=== PATIENT | male | born 1985 | race Two or more races ===

== ENCOUNTER → 2017-09-23 | Emergency (ER) | payer OTHER ==
[~2017-09-23] VITALS: Ht 170.2 cm; Wt 70.3 kg
[~2017-09-23] MED LIST: IBUPROFEN600 MG ORAL; NKM
[2017-09-23 05:56] VITALS: BP 127/82
[2017-09-23 07:19] VITALS: BP 109/82
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
== END | disposition home or self-care (01) ==
LOC: EMR 06:36
DX: S10.93XA Contusion of unspecified part of neck, initial encounter (principal); S80.11XA Contusion of right lower leg, initial encounter; Y04.2XXA Assault by strike against or bumped into by another person, initial encounter; Y92.9 Unspecified place or not applicable
CPT/HCPCS: 99283

== ENCOUNTER 2017-12-15 10:13 | Emergency (ER) | payer OTHER ==
[~2017-12-15] VITALS: Ht 167.6 cm; Wt 77.1 kg
[2017-12-15 10:43] VITALS: BP 117/76
[2017-12-15] MEDS ORDERED: Bacitracin Oint UD TOPIC ONE (11:15)
[2017-12-15] MEDS ORDERED: Tetanus/Diptheria/Pertussis Vaccine 0.5ml Syr IM ONE (11:15)
--- NOTE | 2017-12-15 11:24 | Emergency Room Report ---
History of Present Illness General Chief Complaint: Skin Rash/Abscess Source: Patient Present Illness HPI Patient presents with several rashes. He has a cat that is loosing its hair. He has several lesions which are itching on his skin. No fevers or pain. Also has some possible bug bites. His Mom is a doctor who recommended antihistamines. > 10 years for last tetanus. No fevers, URI, dyspnea, chest pain, NVD, dysuria, joint pain. Allergies: Coded Allergies: No Known Allergies (Unverified , 09/23/17) Patient History Past Medical History: see triage record Social History: Reports: smoking; Denies: alcohol use, drug use Social History Narrative with cat Reviewed Nursing Documentation: PMH: Agreed; PSxH: Agreed Nursing Documentation-PMH Past Medical History: No Stated History Review of Systems All Other Systems: negative except mentioned in HPI Physical Exam Vital Signs Date Time Temp Pulse Resp B/P (MAP) Pulse Ox O2 Delivery O2 Flow Rate FiO2 12/15/17 10:18 98.8 86 18 117/76 97 Room Air 98.8 Sp02 EP Interpretation: reviewed, normal General Appearance: well appearing, no apparent distress Head: normocephalic, atraumatic Eyes: bilateral eye normal inspection, bilateral eye PERRL ENT: hearing grossly normal, normal voice, moist mucus membranes Neck: full range of motion, supple Respiratory: lungs clear, no respiratory distress, speaking full sentences Cardiovascular #1: regular rate, rhythm Cardiovascular #2: 2+ radial (L) Gastrointestinal: normal bowel sounds, non tender Musculoskeletal: digits/nails normal, gait/station normal, normal range of motion, no calf tenderness Neurologic: alert, oriented x3, normal gait, grossly normal Psychiatric: mood/affect normal Skin: warm/dry, rash - erythema and slightly annular in several areas, R hand, ankle, other - bug bite R upper inner arm Medical Decision Making Diagnostic Impression: Primary Impression: Bug bites Qualified Codes: W57.XXXA - Bitten or stung by nonvenomous insect and other nonvenomous arthropods, initial encounter Additional Impression: Tinea corporis ER Course Patient presents with several rashes. Exam c/w tinea corporis and bug bites. No evidence of abscess or cellulitis. Needs tetanus and bacitracin with benadryl. Also will need antifungal. Improved with treatment. Told to get treatment for his cat. Patient stable for outpatient observation and treatment. Last Vital Signs Date Time Temp Pulse Resp B/P (MAP) Pulse Ox O2 Delivery O2 Flow Rate FiO2 12/15/17 11:39 98.7 75 18 112/81 99 Room Air 98.8 Status: improved Disposition: HOME, SELF-CARE Condition: Improved Scripts Bacitracin (Bacitracin) 28.4 Gm Oint...g. 1 APPLIC TOPIC BIDAC, #10 GM Prov: Jax Flores M.D. 12/15/17 Hydrocortisone/Aloe Vera 1%* (HYDROCORTISONE-ALOE 1% CREAM*) Y Cr 1 APPLIC TOPIC BID PRN for Itching, #10 GM Prov: Jax Flores M.D. 12/15/17 Tolnaftate* (AF*) 130 Gm Aero.powd 1 APPLIC TOPIC TWICE A DAY, #30 GM Prov: Jax Flores M.D. 12/15/17 Diphenhydramine Hcl* (BENADRYL*) 25 Mg Capsule 25 MG ORAL Q6H PRN for Itching, #20 CAP Prov: Jax Flores M.D. 12/15/17 Referrals: NON PHYSICIAN (PCP) Jax Flores M.D. Dec 15, 2017 11:24
[2017-12-15] MEDS ORDERED: HYDROCORTISONE-30 GM TOPIC (11:27)
[2017-12-15] MEDS ORDERED: BENADRYL25 MG ORAL (11:27)
[2017-12-15] MEDS ORDERED: AF130 GM TOPIC (11:27)
[2017-12-15] MEDS ORDERED: BACITRACIN15 GM TOPIC (11:27)
[2017-12-15 11:39] VITALS: BP 112/81
== END 2017-12-15 11:50 | disposition home or self-care (01) ==
LOC: EMR 10:35
DX: S40.861A Insect bite (nonvenomous) of right upper arm, initial encounter (principal); W57.XXXA Bitten or stung by nonvenomous insect and other nonvenomous arthropods, initial encounter; Y92.9 Unspecified place or not applicable; B35.4 Tinea corporis; Z23 Encounter for immunization
CPT/HCPCS: 90471; 90715; 99284